=== PATIENT | male | born 2000 | race Caucasian/White ===

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

== ENCOUNTER 2020-07-15 09:20 | Outpatient (RCR) | payer OTHER, SELFPAY | END 2020-09-15 23:59 | LOC: IMMUN 09:20 | PROVIDERS: PCP Pediatrics; Referring Provider Family Medicine; Visit Provider Family Medicine | DX: Z23 Encounter for immunization (principal) | CPT/HCPCS: 0001A; 0002A; 91300 ==

== ENCOUNTER → 2020-07-28 12:54 | Outpatient (CLI) | payer OTHER, SELFPAY ==
[2020-07-28 16:14] LABS: Vitamin D,25 Hydroxy 27.8 ng/mL
[2020-07-28 16:30] LABS: Cholesterol 124 mg/dL (200); High Density Lipoprotein 64 mg/dL; T4 Free Direct 1.18 ng/dL (0.76-1.46); Thyroid Stim Hormone (TSH) 1.24 uIU/mL (0.358-3.74); Triglycerides 28 mg/dL; Very Low Density Lipoprotein 6 mg/dL (5-40)
[2020-07-28 16:43] LABS: Microalbumin,Random Urine 9.9 mg/L (NO RANGE EST.)
[2020-07-30 18:40] LABS: t-Transglutaminase IgA <2 U/mL (0-3)
== END ==
PROVIDERS: PCP Pediatrics
DX: E10.9 Type 1 diabetes mellitus without complications (principal)
CPT/HCPCS: 36415; 80061; 82043; 82306; 82570; 83036; 83516; 84439; 84443

== ENCOUNTER 2021-05-04 11:08 | Emergency (ER) | payer OTHER, SELFPAY ==
[2021-05-04 11:09] VITALS: BP 150/76; PULSE 101; RESP 18; TEMP 36.7; O2SAT 99; BMI 20.3
[2021-05-04 11:20] LABS: Bedside Glucose 215 mg/dL (70-110)
--- NOTE | 2021-05-04 11:39 | CT_ITS ---
STUDY: CT ABDOMEN AND PELVIS WITH CONTRAST REASON FOR EXAM: Male, 20 years old. Lower abdominal pain, vomiting. RADIATION DOSAGE (If Supplied By Facility): CTDIvol = ( 8.16 ) mGy, DLP = ( 354.41 ) mGycm TECHNIQUE: Transaxial images were obtained from the dome of the diaphragm to the symphysis pubis without oral contrast. IV 100mL Isovue-300 was administered. Sagittal and coronal images were reconstructed. Individualized dose optimization techniques were used for this CT. COMPARISON: None. FINDINGS: The visualized lung bases are unremarkable. The visualized portions of the heart are within normal limits. Normal liver. Normal gallbladder and extrahepatic biliary system. Normal spleen. Normal pancreas. Normal bilateral adrenal glands. Normal right kidney. Normal left kidney. There is a small hiatal hernia. Mildly dilated fluid-filled small bowel loops. Fecal material is seen in the colon. This may represent an early small bowel obstruction. Follow-up recommended. Normal colon. The appendix is visualized and appears normal. Normal abdominal aorta. Normal inferior vena cava. Normal retroperitoneum. Normal urinary bladder. Normal abdominal wall. Loss of the normal lumbar lordosis. CT/Abdomen/Pelvis W IV Cont ONLY IMPRESSION: Fluid-filled dilated small bowel loops down to the region of the ileum. This may represent an early small bowel obstruction. Clinical correlation is recommended. Electronically Signed: Ignacio Solares MD at 13:07 [facility] ,
--- NOTE | 2021-05-04 11:40 | ED.VIS.GI ---
HPI HPI - GI History of Present Illness Chief Complaint: Nausea/Vomiting Informant: patient Abdominal Pain/Flank Pain Onset: Hours (4-5) Context: Gradual Onset Timing: Continuous Quality: Aching Location: - (Periumbilical) Current Severity: Severe Maximum Severity: Severe Worsened by: Nothing Relieved by: Nothing Nausea/Vomiting/Emesis GI Symptom: Positive for Nausea and Vomiting Onset: Today Quality: Positive for Nonbilious; Negative for Blood streaks, Coffee ground and Hematemesis Severity: Severe Diarrhea/Melena/Hematochezia GI Symptom: Negative for Diarrhea, Melena and Hematochezia Associated Symptoms Associated Symptoms: Negative for Dysuria, Frequency, Hematuria and Urgency Narrative Narrative: 20-year-old type I diabetic with an insulin pump presenting with periumbilical abdominal pain and vomiting that started several hours ago. 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 He started feeling nauseated as he was going home he went back to sleep after vomiting once, and then woke up vomiting again, as the pain was there at that point and continued to worsen. He states around 930 or so, his blood sugar was 163. He frequently has issues keeping it under control even with his pump which has been working fine. Prior to my seeing the patient here in the emergency department, his blood sugar is 215. He denies any dyspnea or other recent illness, he agrees that he does not feel like he is in DKA right now. He denies any known sick contacts, but he is here at [facility] [employer] and has contact with lots of students. [facility] Medical History (Updated 05/04/21 @ 14:[address] Loy Santoyo MD) Acute upper respiratory infection Bronchospasm Diabetes Seasonal allergies Home Medications insulin aspart U-100 0 units SUBCUT CONT 11/11/19 [History Last Taken Unknown] dicyclomine 20 mg PO Q6H PRN PRN #20 capsule 05/04/21 [Rx Last Taken Unknown] ondansetron 8 mg PO Q8H PRN PRN #20 tab 05/04/21 [Rx Last Taken Unknown] Allergy/AdvReac Type Severity Reaction Status Date / Time No Known Allergies Allergy Verified 05/04/21 11:09 Family History Other Cancer Diabetes Hypertension Surgical History No history of previous surgery Social History Smoking Status: Never smoker ROS ROS ED Constitutional Constitutional ED: Denies chills or fever(s) Eyes Eyes: Denies change in vision or diplopia ENT ENT ED: Denies rhinorrhea or sore throat Cardiovascular Cardiovascular: Denies chest pain or palpitations Respiratory/Chest Respiratory/Chest: Denies cough or dyspnea Gastrointestinal Gastrointestinal: Reports abdominal pain, nausea and vomiting; Denies diarrhea Genitourinary Genitourinary ED: Denies dysuria or hematuria Musculoskeletal Musculoskeletal: Denies back pain or neck pain Integumentary Denies abscess or rash Neurologic Neurologic: Denies headache(s), paresthesias or weakness Psychiatric Psychiatric: Denies anxiety or suicidal thoughts EXAM Physical Exam Const Vital Signs: 05/04/21 11:09 Temperature 98.1 F Temperature Source Temporal Pulse Rate 101 H Respiratory Rate 18 Blood Pressure 150/76 H Blood Pressure Mean 100 Pulse Ox 99 Oxygen Delivery Method Room Air Positive well nourished and well developed General Appearance ED: well developed and NAD HEENT Reports moist mucous membranes normocephalic and atraumatic Eyes PERRL and EOMs intact bilaterally Neck full ROM and supple Resp normal respiratory effort and clear to auscultation bilaterally Cardio regular rate, regular rhythm and no murmurs GI non-distended GI Narrative: Tender throughout lower abdomen mostly right lower quadrant and left lower quadrant including McBurney's point. Negative obturator sign, negative psoas sign. No guarding or rebound tenderness. Auscultation: normoactive bowel sounds Palpation: soft Back/Spine no CVA tenderness General Back: other FROM Extremity normal to inspection General Extremety ED: Negative for edema, pulses abnormal or tenderness General Extremity: Negative for edema or pulses abnormal Neuro oriented x3, CN's II-XII intact bilaterally and no sensory deficits noted Sensorium / Orientation: awake and alert Motor Exam: strength 5/5 throughout Skin no rashes or lesions noted and no wounds MDM MDM MDM Narrative Medical decision making narrative: Patient does not have an elevated anion gap on blood work, which shows a mild nonspecific leukocytosis and mild prerenal azotemia. After Zofran, Bentyl, Toradol, his abdominal pain is resolved and he feels much better. He still was a little nauseated, but able to tolerate oral fluids. His CT shows nonspecific small bowel dilatation/air-fluid levels, radiologist read it as possible small bowel obstruction, however in context of this patient it is more consistent with gastroenteritis. He has never had any abdominal surgeries, and his symptoms resolved with fairly mild measures. At this time he is given an additional promethazine orally, and will prescribe him Zofran to use as needed, with supportive care advised for now, we discussed reasons to return to comfortable with the plan. Lab Data Attestation: I reviewed the patient's lab results. Labs: Laboratory Results - last 24 hr 05/04/21 05/04/21 05/04/21 11:15 11:55 11:55 WBC 12.2 H RBC 5.36 Hgb 16.6 H Hct 47.1 MCV 87.9 MCH 31.0 MCHC 35.2 RDW Std Deviation 38.7 RDW Coeff of Adolfo 12.0 Plt Count 170 MPV 11.3 Immature Gran % (Auto) 0.300 Neut % (Auto) 91.9 H Lymph % (Auto) 2.5 L [place] % (Auto) 4.3 Eos % (Auto) 0.8 Baso % (Auto) 0.2 Absolute Neuts (auto) 11.2 H Absolute Lymphs (auto) 0.31 L Nucleated RBC % 0 Sodium 135 L Potassium 4.3 Chloride 103 Carbon Dioxide 27.0 Anion Gap 5 BUN 20 H Creatinine 1.01 Estim Creat Clear Calc 125.00 Est GFR (MDRD) Af Amer 121 Est GFR (MDRD) Non-Af 100 BUN/Creatinine Ratio 19.8 Glucose 217 H Calcium 8.9 Total Bilirubin 1.30 H AST 13 L ALT 31 Alkaline Phosphatase 72 Total Protein 7.2 Albumin 4.2 Globulin 3.0 Albumin/Globulin Ratio 1.4 Lipase 54 L Urine Color Urine Clarity Urine pH Ur Specific [place] Urine Protein Urine Glucose (UA) Urine Ketones Urine Occult Blood Urine Nitrite Urine Bilirubin Urine Urobilinogen Ur Leukocyte Esterase Urine RBC Urine WBC Ur Squamous Epith Cells Urine Bacteria Urine Mucus POC Glucose 215 H 05/04/21 13:15 WBC RBC Hgb Hct MCV MCH MCHC RDW Std Deviation RDW Coeff of Adolfo Plt Count MPV Immature Gran % (Auto) Neut % (Auto) Lymph % (Auto) [place] % (Auto) Eos % (Auto) Baso % (Auto) Absolute Neuts (auto) Absolute Lymphs (auto) Nucleated RBC % Sodium Potassium Chloride Carbon Dioxide Anion Gap BUN Creatinine Estim Creat Clear Calc Est GFR (MDRD) Af Amer Est GFR (MDRD) Non-Af BUN/Creatinine Ratio Glucose Calcium Total Bilirubin AST ALT Alkaline Phosphatase Total Protein Albumin Globulin Albumin/Globulin Ratio Lipase Urine Color Yellow Urine Clarity Clear Urine pH 6.5 Ur Specific [place] [employer] 1.010 Urine Protein 15 H Urine Glucose (UA) 1000 H Urine Ketones 50 H Urine Occult Blood Negative Urine Nitrite Negative Urine Bilirubin Negative Urine Urobilinogen Normal Ur Leukocyte Esterase Negative Urine RBC 0 SEEN Urine WBC 0 SEEN Ur Squamous Epith Cells 0 SEEN Urine Bacteria 0 SEEN Urine Mucus 0 SEEN POC Glucose Radiography Diagnostic Testing: Clinical Impression(s) from Imaging Studies Abdomen/Pelvis CT 05/04/21 11:39 IMPRESSION: Fluid-filled dilated small bowel loops down to the region of the ileum. This may represent an early small bowel obstruction. Clinical correlation is recommended. Electronically Signed: Ignacio Solares MD at 13:07 EST , Discharge Plan Triage Chief Complaint: Nausea/Vomiting ED Provider: Loy Santoyo Dx/Rx/DC Orders Clinical Impression: Acute gastroenteritis, Hyperglycemia due to type 1 diabetes mellitus Instructions: ED Food Poison Or Gastroenteritis, ED Gastroenteritis, Viral (Adult) Prescriptions: New dicyclomine 10 MG capsule 20 mg PO Q6H PRN PRN (Reason: abdominal discomfort) Qty: 20 RF: 0 ondansetron [ondansetron] 4 MG tablet 8 mg PO Q8H PRN PRN (Reason: Nausea) Qty: 20 RF: 0 No Action insulin aspart U-100 100 UNITS/ML insulin pen 0 units subcut CONT RF: 0 Primary Care Provider: Care Physician,No Primary Referrals: Doctor,Your [STAFF PHYSICIAN] - 3-5 Days if not improving Disposition Disposition: Home, Self Care
[2021-05-04] MEDS: 0.9% Normal Saline 1,000 ML 1000 ML IV (11:59)
[2021-05-04] MEDS: Ondansetron 4 MG/2 ML Vial IV (12:00)
[2021-05-04] MEDS: Dicyclomine 20 MG/2 ML Vial IM (12:00)
[2021-05-04] MEDS: Ketorolac 15 MG/ML Vial IV (12:00)
--- NOTE | 2021-05-04 12:10 | CASEMGMT ---
MERRICK PICKETT to room to provide [facility] Healthcare Provider Directory as patient has no PCP listed on record. Patient alert and oriented. Patient's mother present at bedside and reports patient currently without PCP as he is too old to see previous pharmacy resident and has not yet established adult provider. Mother reports patient's diabetes currently managed by [facility]. Patient and mother encouraged to review directory and contact provider of choice to establish care. Patient and mother deny further needs. MERRICK Lewis CM
[2021-05-04 12:15] LABS: Absolute Lymphocyte Count 0.31 X10^3/uL (0.83-4.51); Absolute Neutrophil Count 11.2 X10^3/uL (2.0-7.7); Basophil# 0.03 X10^3/uL; Basophil% 0.2 % (0-1); Eosinophils% 0.8 % (0-5); Hematocrit 47.1 % (40-54); Hemoglobin 16.6 g/dL (13.0-16.5); Lymphocyte # 0.31 X10^3/ul (0.83-4.51); Lymphocyte % 2.5 % (19-41); Mean Corp Hgb Conc 35.2 g/dL (32-36); Mean Corpuscular Volume 87.9 fL (80-94); Mean Platelet Vol. 11.3 fl (6.2-12.0); Monocyte# 0.53 X10^3/uL; Monocyte% 4.3 % (0-10); NRBC Flagged by Analyzer 0 % (0-5); Neutrophil # 11.22 X10^3/uL (2.7-7.7); Neutrophil % 91.9 % (47-70); POSITIVE DIFFERENTIAL YES; Platelet Count 170 K/mm3 (150-450); RBC Distribution Width SD 38.7 fl (35.1-43.9); Red Blood Count 5.36 M/mm3 (4.6-6.2); White Blood Count 12.2 K/mm3 (4.4-11.0)
[2021-05-04 12:29] LABS: Differential Indicated SCAN CRITERIA MET
[2021-05-04 12:31] LABS: ALB/GLOB Ratio 1.4 RATIO (0.9-2.4); AST(SGOT) 13 U/L (15-37); Alanine Aminotransfer ALT/SGPT 31 U/L (16-61); Albumin, Serum 4.2 g/dL (3.2-5.0); Alkaline Phosphatase 72 U/L (45-117); Anion Gap 5 (5-15); BUN 20 mg/dL (7-18); BUN/Creat Ratio 19.8 RATIO (10-20); Calcium,Total 8.9 mg/dL (8.5-10.1); Chloride 103 mmol/L (98-107); Creatinine, Serum 1.01 mg/dL (0.70-1.30); EST Glomerular Filtration Rate 100 mL/min (>60); Est Glom Filt Rate - Afr Amer 121 mL/min (>60); Glucose 217 mg/dL (74-106); Lipase 54 U/L (73-393); Potassium 4.3 mmol/L (3.5-5.1); Protein, Total 7.2 g/dL (6.4-8.2); Sodium Level 135 mmol/L (136-145)
[2021-05-04 13:20] LABS: Bacteria 0 SEEN /hpf (None Seen); Mucous, Urine 0 SEEN /hpf (<or=2+); Red Blood Cells-Urine 0 SEEN /hpf (0-5); Squamous Epithelial Cells - UA 0 SEEN /hpf (0-5); White Blood Cells 0 SEEN /hpf (0-5)
[2021-05-04 13:23] LABS: Color, Urine Yellow (Yellow); Glucose, Dipstick 1000 mg/dl (Normal); Ketone-Dipstick 50 mg/dl (Negative); Leukocyte Esterase-Dipstick Negative /ul (Negative); Nitrite-Dipstick Negative (Negative); Occult Blood-Urine Negative /ul (Negative); Protein-Dipstick 15 mg/dl (Negative); Urine Bilirubin Dipstick Negative (Negative); Urine Clarity Clear (Clear); Urine Urobilinogen Normal (Normal); Urine pH 6.5 (5.0 - 8.0)
[2021-05-04] MEDS: proMETHazine 25 MG Tablet PO (14:23)
[2021-05-04 14:29] VITALS: BP 110/56; PULSE 80; RESP 16
== END 2021-05-04 14:30 | disposition home or self-care (01) ==
PROVIDERS: Emergency Provider Emergency Medicine; Visit Provider Emergency Medicine
DX: K52.9 Noninfective gastroenteritis and colitis, unspecified (principal); E10.65 Type 1 diabetes mellitus with hyperglycemia; Z79.4 Long term (current) use of insulin; Z96.41 Presence of insulin pump (external) (internal)
CPT/HCPCS: 74177; 80053; 81001; 82962; 83690; 85025; 96361; 96372; 96374; 96375; 99284; J7030; Q9967; A4216; J2405

== ENCOUNTER → 2021-08-03 | Outpatient (CLI) | payer OTHER, SELFPAY ==
[2021-08-03 15:27] LABS: Erythrocyte Sedimentation Rate 1 mm/hr (0-20)
[2021-08-03 15:28] LABS: Hemoglobin 15.8 g/dL (13.0-16.5); Mean Corp Hgb Conc 34.3 g/dL (32-36); Mean Corpuscular Hgb 30.3 pg (27.0-32.0); Mean Corpuscular Volume 88.1 fL (80-94); Mean Platelet Vol. 11.6 fl (6.2-12.0); Platelet Count 196 K/mm3 (150-450); RBC Distribution Width CV 12.2 % (11.6-14.6); RBC Distribution Width SD 39.7 fl (35.1-43.9); Red Blood Count 5.22 M/mm3 (4.6-6.2); White Blood Count 4.7 K/mm3 (4.4-11.0)
[2021-08-03 15:46] LABS: Hemoglobin A1c 7.6 % (3.8-5.6)
[2021-08-03 15:48] LABS: Microalbumin,Random Urine 5.1 mg/L (NO RANGE EST.)
[2021-08-03 16:15] LABS: ALB/GLOB Ratio 1.2 RATIO (0.9-2.4); AST(SGOT) 15 U/L (15-37); Alanine Aminotransfer ALT/SGPT 21 U/L (16-61); Alkaline Phosphatase 77 U/L (45-117); Anion Gap 4 (5-15); BUN 12 mg/dL (7-18); BUN/Creat Ratio 13.3 RATIO (10-20); CRP < 2.90 mg/L (0.0-3.0); Calcium,Total 8.9 mg/dL (8.5-10.1); Chloride 105 mmol/L (98-107); Cholesterol 120 mg/dL (200); EST Glomerular Filtration Rate 114 mL/min (>60); Est Glom Filt Rate - Afr Amer 138 mL/min (>60); Globulin 3.2 g/dL (2.2-4.2); Glucose 154 mg/dL (74-106); High Density Lipoprotein 57 mg/dL; Potassium 3.7 mmol/L (3.5-5.1); Protein, Total 7.2 g/dL (6.4-8.2); Sodium Level 137 mmol/L (136-145); T4 Free Direct 1.19 ng/dL (0.76-1.46); Thyroid Stim Hormone (TSH) 0.97 uIU/mL (0.358-3.74); Triglycerides 28 mg/dL; Very Low Density Lipoprotein 6 mg/dL (5-40)
[2021-08-03 16:17] LABS: Vitamin D,25 Hydroxy 21.8 ng/mL
[2021-08-05 17:40] LABS: t-Transglutaminase IgA <2 U/mL (0-3)
== END | disposition home or self-care (01) ==
DX: E10.65 Type 1 diabetes mellitus with hyperglycemia (principal); R10.9 Unspecified abdominal pain
CPT/HCPCS: 36415; 80053; 80061; 82043; 82306; 82570; 83036; 83516; 84439; 84443; 85027; 85652; 86140